=== PATIENT | female | born 1995 ===

== ENCOUNTER 2024-05-08 15:30 | Emergency (ER) | payer BC ==
[2024-05-08] MEDS: Diphtheria,Pertussis(Acell),Tetanus Vaccine 0.5 ML Syringe IM ONE (16:23)
[2024-05-08] MEDS: Bacitracin Oint 1 GM U/D Packet TOP ONE (16:23)
[2024-05-08] MEDS: Ketorolac 30 MG/ML SDV IM ONE (16:23)
== END 2024-05-08 18:14 | disposition home or self-care (01) ==
LOC: DL.ED 15:30
DX: S93.402A Sprain of unspecified ligament of left ankle, initial encounter (principal); Z23 Encounter for immunization; W22.8XXA Striking against or struck by other objects, initial encounter
CPT/HCPCS: 73610; 73620; 81025; 90471; 90715; 96372; 99283; A9270; J1885